=== PATIENT | female | born 1975 | race American Indian/Alaskan Native ===

== ENCOUNTER 2016-12-27 06:00 | Inpatient (IN) | payer MEDICAID ==
[2015-03-16 09:58] VITALS: BMI 34.7
--- NOTE | 2016-12-27 00:07 | CP.PCM.HP ---
History of Present Illness - History of Present Illness History of Present Illness: 41yo P0 with previous H/O myomectomy for fibroid uterus, returns here today for definitive treatment with Total/Partial Hysterectomy. Pt also has a large left ovarian cyst and would have ovarian cystectomy. The procedure as well as the risks and benefits, Alternatives were discussed. It was pointed out to the patient that a subtotal hysterectomy would be performed in the event of intense pelvic adhesions. Questions from Pt has been answered and a consent was obtained. Present on Admission - Present on Admission Any Indicators Present on Admission: No Past Patient History - Past Medical History & Family History Past Medical History?: Yes - Past Social History Smoking Status: Never Smoked - CARDIAC Hx Hypertension: Yes - PULMONARY Hx Respiratory Disorders: No - NEUROLOGICAL Hx Neurological Disorder: No - HEENT Hx HEENT Problems: No - RENAL Hx Chronic Kidney Disease: No - ENDOCRINE/METABOLIC Hx Endocrine Disorders: No - HEMATOLOGICAL/ONCOLOGICAL Hx Blood Disorders: Yes Hx Anemia: Yes - INTEGUMENTARY Hx Dermatological Problems: Yes Other/Comment: [place]. FOR FUNGAL INFECTION BILAT. TOENAILS - MUSCULOSKELETAL/RHEUMATOLOGICAL Hx Musculoskeletal Disorders: Yes Hx Fractures: Yes (left foot) - GASTROINTESTINAL Hx Gastrointestinal Disorders: No - GENITOURINARY/GYNECOLOGICAL Hx Genitourinary Disorders: Yes Other/Comment: DX: FIBROIDS - PSYCHIATRIC Hx Psychophysiologic Disorder: No - SURGICAL HISTORY Hx Surgeries: Yes Hx Open Reduction Internal Fixation: Yes (left foot) Other/Comment: myomectomy - ANESTHESIA Hx Anesthesia: Yes Hx Anesthesia Reactions: No Hx Malignant Hyperthermia: No Has any member of the family had a problem w/ anesthesia?: No Meds Home Medications: Home Medication List Medication Instructions Recorded Confirmed Type Ibuprofen [Motrin Tab] 600 mg PO Q6H PRN #30 tab 12/29/16 Rx oxyCODONE/Acetaminophen [Percocet 1 tab PO Q4 PRN #15 tab 12/29/16 Rx 5/325 mg Tab] Allergies/Adverse Reactions: Allergies Allergy/AdvReac Type Severity Reaction Status Date / Time Penicillins Allergy Unknown UNKNOWN Verified 12/25/16 08:21 Results - Labs Result Diagrams: 12/28/16 07:41 Assessment & Plan (1) Fibroid uterus Status: Acute (2) Menorrhagia Status: Acute (3) Adnexal mass Status: Acute - Assessment and Plan (Free Text) Plan: NPO IV Fluids Mefoxin 2gms iv 1 hour before incision Sequential compression device - Date & Time Date: 12/27/16 Time: 07:54 Decision To Admit - InPatient: Physician Admission Certification:: cesar farrell - . 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
[2016-12-27] MEDS ORDERED: Midazolam 2 MG/2 ML VIAL ONE (07:27)
[2016-12-27] MEDS ORDERED: Propofol 10 mg/ml Inj (20 ML) ONE (07:27)
[2016-12-27] MEDS ORDERED: Rocuronium 10 mg/ml (5 ml) ONE (07:29)
[2016-12-27] MEDS ORDERED: Phenylephrine 10 mg/ml Inj ONE (07:29)
[2016-12-27] MEDS ORDERED: Lactated Ringer's 1,000 ML IV ONE ×7 (07:49→16:00)
[2016-12-27] MEDS ORDERED: Clindamycin 300 MG in Sodium Chloride 0.9% 50 ML IVPB ONE (09:00)
[2016-12-27] MEDS ORDERED: Clindamycin 600mg/50ml NS 600 MG/50 ML BAG IVPB ONE (09:08)
--- NOTE | 2016-12-27 09:58 | CP.PCM.HP ---
History of Present Illness - History of Present Illness History of Present Illness: 41yo P0 with previous H/O myomectomy for fibroid uterus, returns here today for definitive treatment with Total/Partial Hysterectomy. Pt also has a large left ovarian cyst and would have ovarian cystectomy. The procedure as well as the risks and benefits, Alternatives were discussed. It was pointed out to the patient that a subtotal hysterectomy would be performed in the event of intense pelvic adhesions. Questions from Pt has been answered and a consent was obtained. Past Patient History - Past Medical History & Family History Past Medical History?: Yes - Past Social History Smoking Status: Never Smoked - CARDIAC Hx Hypertension: Yes - PULMONARY Hx Respiratory Disorders: No - NEUROLOGICAL Hx Neurological Disorder: No - HEENT Hx HEENT Problems: No - RENAL Hx Chronic Kidney Disease: No - ENDOCRINE/METABOLIC Hx Endocrine Disorders: No - HEMATOLOGICAL/ONCOLOGICAL Hx Blood Disorders: Yes Hx Anemia: Yes - INTEGUMENTARY Hx Dermatological Problems: Yes Other/Comment: [place]. FOR FUNGAL INFECTION BILAT. TOENAILS - MUSCULOSKELETAL/RHEUMATOLOGICAL Hx Musculoskeletal Disorders: Yes Hx Fractures: Yes (left foot) - GASTROINTESTINAL Hx Gastrointestinal Disorders: No - GENITOURINARY/GYNECOLOGICAL Hx Genitourinary Disorders: Yes Other/Comment: DX: FIBROIDS - PSYCHIATRIC Hx Psychophysiologic Disorder: No - SURGICAL HISTORY Hx Surgeries: Yes Hx Open Reduction Internal Fixation: Yes (left foot) Other/Comment: myomectomy - ANESTHESIA Hx Anesthesia: Yes Hx Anesthesia Reactions: No Hx Malignant Hyperthermia: No Has any member of the family had a problem w/ anesthesia?: No Meds Allergies/Adverse Reactions: Allergies Allergy/AdvReac Type Severity Reaction Status Date / Time Penicillins Allergy Unknown UNKNOWN Verified 12/25/16 08:21 Results - Vital Signs Recent Vital Signs: Last Vital Signs Temp 97.3 F L 12/27/16 06:17 Pulse 88 12/27/16 06:17 Resp 20 12/27/16 06:17 BP 131/89 12/27/16 06:17 Pulse Ox 97 12/27/16 06:17 - Labs Labs: Laboratory Results - last 24 hr 12/27/16 07:13 Blood Type O POSITIVE Antibody Screen Negative
[2016-12-27] MEDS ORDERED: Neostigmine Methylsulfate 3mg/3ml Syringe IV ONE (10:37)
[2016-12-27] MEDS ORDERED: Oxycodone/Acetaminophen 5/325 mg Tab PO PRN (12:00)
[2016-12-27] MEDS ORDERED: Morphine 4 MG/ML VIAL ONE (12:15)
[2016-12-27] MEDS ORDERED: Morphine Monoject Barrel PCA 1mg/ml IV PRN (12:27)
[2016-12-27] MEDS ORDERED: Lactated Ringer's 1,000 ML IV SCH (12:30)
[2016-12-27] MEDS: HYDROmorphone 0.5 mg/0.5 ml ISec IVP PRN ×4 (12:55→13:50)
[2016-12-27 13:18] LABS: BASO # 0.1 K/uL (0.0-0.2); BASO % 0.3 % (0.0-2.0); EOS % 0.1 % (0.0-4.0); HEMATOCRIT 31.9 % (34.0-47.0); LYMPH # 2.1 K/uL (1.0-4.3); LYMPH % 10.2 % (20.0-40.0); MEAN CELL VOLUME 75.1 fL (81.0-99.0); MEAN PLATELET VOLUME 8.5 fL (7.2-11.7); MONO # 0.6 K/uL (0.0-0.8); MONO % 3.2 % (0.0-10.0); RED CELL DISTRIBUTION WIDTH 18.5 % (11.5-14.5)
[2016-12-27 13:32] LABS: WHITE BLOOD COUNT 20.2 K/uL (4.8-10.8)
--- NOTE | 2016-12-27 14:58 | PCM.SURG1 ---
Surgeon's Initial Post Op Note - Surgeon's Notes Surgeon: Dr Farrell Line Servicer: Pebbles Castano( Resident ) Type of Anesthesia: General Endo Anesthesia Administered By: CARLOS Rai, Supervised by Dr Rai Pre-Operative Diagnosis: Fibroid Uterus with Menorrhagia,. Previous Myomectomies X 2 Operative Findings: Extensive omental, bowels and bladder adhesions to the body of the 14wk sized multinodular uterus. Bladder was attached to the lower 2/3rds of the anterior surface of the uterus. The left adnexa had a 5.4X4.0X3.5cm ovarian cyst which was removed whist release of adhesions were being performed with Metzenbaum scissors and pickup forcep, a process taking over 2 hours before a total hysterectomy could be performed. Right ovary was visualized but involved in pelvic adhesions.Both fallopian tubes were involved in pelvic adhesions and were not visualized seperately. IVF Intake- 3500mls. EBL- 1000mls. urine Output- 500mls Post-Operative Diagnosis: Extensive Pelvic adhesions due to previous myomectomies. Multinidular fibroid uterus. Left Ovarian Cyst Operation Performed: Release of Pelvic adhesions. Total Abdominal Hysterectomy. Left Ovarian Cystectomy Specimen/Specimens Removed: Uterus with Cervix Estimated Blood Loss: EBL {In ML}: 1,000 Blood Products Given: PRBC (1 unit) Post-Op Condition: Good Date of Surgery/Procedure: 12/27/16 Time of Surgery/Procedure: 12:00
[2016-12-27] MEDS: Clindamycin 600mg/50ml D5W 600 MG/50 ML VIAL IVPB SCH ×2 (15:00→23:09)
[2016-12-27 22:25] LABS: BASO # 0.1 K/uL (0.0-0.2); BASO % 0.4 % (0.0-2.0); HEMATOCRIT 30.2 % (34.0-47.0); LYMPH # 0.9 K/uL (1.0-4.3); LYMPH % 5.2 % (20.0-40.0); MEAN CELL VOLUME 74.3 fL (81.0-99.0); MEAN CORPUSCULAR HEMOGLOBIN 24.2 pg (27.0-31.0); MEAN CORPUSCULAR HGB CONC 32.5 g/dL (33.0-37.0); MEAN PLATELET VOLUME 8.1 fL (7.2-11.7); MONO # 1.1 K/uL (0.0-0.8); MONO % 6.4 % (0.0-10.0); PLATELET COUNT 214 K/uL (130-400); RED CELL DISTRIBUTION WIDTH 18.6 % (11.5-14.5); WHITE BLOOD COUNT 17.1 K/uL (4.8-10.8)
[2016-12-27 23:29] LABS: LARGE PLATELETS PRESENT; NEUTROPHIL 81 % (50-75); SMUDGE CELLS PRESENT; TOTAL CELLS COUNTED 100
[2016-12-28 07:51] LABS: BASO # 0.1 K/uL (0.0-0.2); BASO % 0.6 % (0.0-2.0); HEMATOCRIT 30.1 % (34.0-47.0); LYMPH # 1.5 K/uL (1.0-4.3); LYMPH % 10.8 % (20.0-40.0); MEAN CELL VOLUME 75.9 fL (81.0-99.0); MEAN CORPUSCULAR HEMOGLOBIN 24.6 pg (27.0-31.0); MEAN CORPUSCULAR HGB CONC 32.4 g/dL (33.0-37.0); MEAN PLATELET VOLUME 8.2 fL (7.2-11.7); MONO % 7.4 % (0.0-10.0); RED CELL DISTRIBUTION WIDTH 19.3 % (11.5-14.5); WHITE BLOOD COUNT 13.7 K/uL (4.8-10.8)
--- NOTE | 2016-12-28 08:23 | CP.PCM.PN ---
<Ирина Baugh - Last Filed: 12/28/16 12:18> Subjective - Date & Time of Evaluation Date of Evaluation: 12/28/16 Time of Evaluation: 07:45 - Subjective Subjective: Patient seen and examined at bedside. Per nursing no acute events overnight. Patient is OOB to chair. Pain scale 9/10 currently on MANAGER [employer] pump. Guerin out this am. Tolerating clears. Denies passing flatus or BM. Reports having occasional dizziness. Denies headaches, chest pain, palpitations, shortness of breath. Objective - Vital Signs/Intake and Output Vital Signs (last 24 hours): Temp Pulse Resp BP Pulse Ox 97 F L 90 20 111/79 99 12/27/16 21:17 12/27/16 21:17 12/27/16 21:17 12/27/16 21:17 12/27/16 21:17 Intake and Output: 12/28/16 12/28/16 06:59 18:59 Intake Total 400 Output Total 300 Balance 100 - Medications Medications: Current Medications Hydromorphone HCl (Dilaudid) 0.5 mg IVP Q5M PRN PRN Reason: Pain, severe (8-10) Last Admin: 12/27/16 13:50 Dose: 0.5 mg Lactated Ringer's (Lactated Ringer's) 1,000 mls @ 125 mls/hr IV .Q8H [facility]OHNNY Clindamycin Phosphate (Cleocin) 600 mg in 50 mls @ 102 mls/hr IVPB Q8H JOHNNY Last Admin: 12/27/16 23:09 Dose: 102 mls/hr Ibuprofen (Motrin Tab) 600 mg PO Q6H PRN PRN Reason: Pain, Mild (1-3) Morphine Sulfate/Sodium Chloride (Morphine Inspector Machined Parts Monoject Barrel) 30 mg IV Q4H PRN; Protocol PRN Reason: Pain, severe (8-10) Last Admin: 12/27/16 16:00 Dose: 0.5 mg Oxycodone/Acetaminophen (Percocet 5/325 Mg Tab) 1 tab PO Q4 PRN PRN Reason: Pain, moderate (4-7) Stop: 12/30/16 12:01 Oxycodone/Acetaminophen (Percocet 5/325 Mg Tab) 2 tab PO Q4H PRN PRN Reason: Pain, severe (8-10) Stop: 12/30/16 12:40 - Labs Labs: 12/28/16 07:41 - Constitutional Appears: Well, No Acute Distress - Head Exam Head Exam: ATRAUMATIC, NORMAL INSPECTION - Eye Exam Eye Exam: EOMI, Normal appearance - ENT Exam ENT Exam: Mucous Membranes Moist - Neck Exam Neck Exam: Full ROM - Respiratory Exam Respiratory Exam: Clear to Ausculation Bilateral, NORMAL BREATHING PATTERN. absent: Rales, Rhonchi, Wheezes - Cardiovascular Exam Cardiovascular Exam: REGULAR RHYTHM, +S1, +S2 - GI/Abdominal Exam GI & Abdominal Exam: Soft, Tenderness, Hypoactive Bowel Sounds Additional comments: Dressing c/d/i; abdominal binder in place, abdomen appropriately tender - Extremities Exam Extremities Exam: Normal Inspection. absent: Calf Tenderness - Neurological Exam Neurological Exam: Alert, Awake, Oriented x3 - Psychiatric Exam Psychiatric exam: Normal Affect, Normal Mood - Skin Skin Exam: Dry, Normal Color, Warm Assessment and Plan - Assessment and Plan (Free Text) Assessment: 41 year old female with history of uterine fibroids/menorrhagia, history of 2 prior myomectomies, s/p Release of Pelvic adhesions, Total Abdominal Hysterectomy, Left Ovarian Cystectomy POD#1 Plan: 1. Stable, afebrile 2. D/C MANAGER [employer] pump, start PO pain medication 3. Post op Hgb 10.2 -> 9.8 4. F/U am CBC 5. Advance diet as tolerated 6. Guerin out, f/u voiding trial 7. Encourage ambulation and hydration; Encourage ISS use 8. Continue routine post op care 9. Plan d/w attending <Ben Farrell O - Last Filed: 12/30/16 22:17> Objective - Vital Signs/Intake and Output Vital Signs (last 24 hours): Temp Pulse Resp BP Pulse Ox 98.9 F 83 18 112/62 97 12/29/16 09:23 12/29/16 09:23 12/29/16 09:23 12/29/16 09:23 12/29/16 09:23 - Labs Labs: 12/28/16 07:41 Assessment and Plan (1) Fibroid uterus Status: Acute (2) Menorrhagia Status: Acute (3) Adnexal mass Status: Acute Attending/Attestation - Attestation I have personally seen and examined this patient.: No I have fully participated in the care of the patient.: Yes I have reviewed all pertinent clinical information, including history, physical exam and plan: Yes Notes (Text): 12/30/16 22:16 Pt reviewed with the resident and agrees with the above.
[2016-12-28] MEDS: Clindamycin 600mg/50ml D5W 600 MG/50 ML VIAL IVPB SCH ×3 (09:03→22:16)
[2016-12-28] MEDS: Oxycodone/Acetaminophen 5/325 mg Tab PO PRN (12:26)
--- NOTE | 2016-12-28 18:59 | CP.PCM.PN ---
Subjective - Date & Time of Evaluation Date of Evaluation: 12/28/16 Objective - Vital Signs/Intake and Output Vital Signs (last 24 hours): Temp Pulse Resp BP Pulse Ox 99.2 F 95 H 20 129/77 95 12/28/16 16:00 12/28/16 16:00 12/28/16 16:00 12/28/16 16:00 12/28/16 16:00 Intake and Output: 12/28/16 12/28/16 06:59 18:59 Intake Total 400 675 Output Total 300 Balance 100 675 - Medications Medications: Current Medications Lactated Ringer's (Lactated Ringer's) 1,000 mls @ 125 mls/hr IV .Q8H JOHNNY Last Admin: 12/28/16 09:14 Dose: 125 mls/hr Clindamycin Phosphate (Cleocin) 600 mg in 50 mls @ 102 mls/hr IVPB Q8H JOHNNY Last Admin: 12/28/16 16:20 Dose: 102 mls/hr Ibuprofen (Motrin Tab) 600 mg PO Q6H PRN PRN Reason: Pain, Mild (1-3) Last Admin: 12/28/16 18:28 Dose: 600 mg Morphine Sulfate/Sodium Chloride (Morphine Derrick Helper Monoject Barrel) 30 mg IV Q4H PRN; Protocol PRN Reason: Pain, severe (8-10) Last Admin: 12/27/16 16:00 Dose: 0.5 mg Oxycodone/Acetaminophen (Percocet 5/325 Mg Tab) 1 tab PO Q4 PRN PRN Reason: Pain, moderate (4-7) Stop: 12/30/16 12:01 Oxycodone/Acetaminophen (Percocet 5/325 Mg Tab) 2 tab PO Q4H PRN PRN Reason: Pain, severe (8-10) Stop: 12/30/16 12:40 Last Admin: 12/28/16 12:26 Dose: 2 tab - Labs Labs: 12/28/16 07:41
[2016-12-29] MEDS: Clindamycin 600mg/50ml D5W 600 MG/50 ML VIAL IVPB SCH (06:04)
[2016-12-29] MEDS: Oxycodone/Acetaminophen 5/325 mg Tab PO PRN (06:07)
--- NOTE | 2016-12-29 09:08 | CP.PCM.PN ---
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 Per nursing no acute events overnight. Patient is doing well, pain is controlled. Patient is ambulating and tolerating diet. Urinating without difficulty. Passing flatus, denies BM. Denies headaches , dizziness, cp, palpitations, urinary symptoms. Objective - Vital Signs/Intake and Output Vital Signs (last 24 hours): Temp Pulse Resp BP Pulse Ox 97.5 F L 85 20 104/64 96 12/29/16 00:00 12/29/16 00:00 12/29/16 00:00 12/29/16 00:00 12/29/16 00:00 - Medications Medications: Current Medications Lactated Ringer's (Lactated Ringer's) 1,000 mls @ 125 mls/hr IV .Q8H [facility] Last Admin: 12/28/16 09:14 Dose: 125 mls/hr Clindamycin Phosphate (Cleocin) 600 mg in 50 mls @ 102 mls/hr IVPB Q8H JOHNNY Last Admin: 12/29/16 06:04 Dose: 102 mls/hr Ibuprofen (Motrin Tab) 600 mg PO Q6H PRN PRN Reason: Pain, Mild (1-3) Last Admin: 12/28/16 18:28 Dose: 600 mg Morphine Sulfate/Sodium Chloride (Morphine Director Stage Monoject Barrel) 30 mg IV Q4H PRN; Protocol PRN Reason: Pain, severe (8-10) Last Admin: 12/27/16 16:00 Dose: 0.5 mg Oxycodone/Acetaminophen (Percocet 5/325 Mg Tab) 1 tab PO Q4 PRN PRN Reason: Pain, moderate (4-7) Stop: 12/30/16 12:01 Oxycodone/Acetaminophen (Percocet 5/325 Mg Tab) 2 tab PO Q4H PRN PRN Reason: Pain, severe (8-10) Stop: 12/30/16 12:40 Last Admin: 12/29/16 06:07 Dose: 2 tab - Labs Labs: 12/28/16 07:41 - Constitutional Appears: Well, No Acute Distress - Head Exam Head Exam: ATRAUMATIC, NORMAL INSPECTION - Eye Exam Eye Exam: EOMI, Normal appearance Pupil Exam: NORMAL ACCOMODATION - ENT Exam ENT Exam: Mucous Membranes Moist - Respiratory Exam Respiratory Exam: Clear to Ausculation Bilateral, NORMAL BREATHING PATTERN. absent: Rhonchi, Wheezes - Cardiovascular Exam Cardiovascular Exam: REGULAR RHYTHM, +S1, +S2 - GI/Abdominal Exam GI & Abdominal Exam: Soft, Tenderness Additional comments: Incision c/d/i Abd binder in place - Extremities Exam Extremities Exam: Calf Tenderness, Normal Inspection - Back Exam Back Exam: NORMAL INSPECTION - Neurological Exam Neurological Exam: Alert, Awake, Oriented x3 - Psychiatric Exam Psychiatric exam: Normal Affect, Normal Mood - Skin Skin Exam: Dry, Normal Color, Warm Assessment and Plan - Assessment and Plan (Free Text) Assessment: 41 year old female with history of uterine fibroids/menorrhagia, history of 2 prior myomectomies, s/p Release of Pelvic adhesions, Total Abdominal Hysterectomy, Left Ovarian Cystectomy POD#2 Plan: 1. Stable, afebrile 2. Pain control - percocet and motrin prn 3. Encourage ambulation and hydration 4. Encourage ISS use 5. Continue routine post op care 6. Anticipate d/c home today - pelvic rest x 6 weeks, percocet and motrin prn pain, f/u with office within 10 days for post op check 7. Plan d/w attending Ирина Baugh DO PGY-1 <Ben Farrell O - Last Filed: 12/30/16 22:19> Objective - Vital Signs/Intake and Output Vital Signs (last 24 hours): Temp Pulse Resp BP Pulse Ox 98.9 F 83 18 112/62 97 12/29/16 09:23 12/29/16 09:23 12/29/16 09:23 12/29/16 09:23 12/29/16 09:23 - Labs Labs: 12/28/16 07:41 Assessment and Plan (1) Fibroid uterus Status: Acute (2) Menorrhagia Status: Acute (3) Adnexal mass Status: Acute Attending/Attestation - Attestation I have personally seen and examined this patient.: No I have fully participated in the care of the patient.: Yes I have reviewed all pertinent clinical information, including history, physical exam and plan: Yes
[2016-12-29 09:25] VITALS: BP 112/62; PULSE 83; RESP 18; TEMP 98.9; O2SAT 97
--- NOTE | 2016-12-29 14:00 | CP.PCM.DIS ---
<Ирина Baugh - Last Filed: 12/29/16 14:03> Provider - Provider Date of Admission: 12/27/16 06:00 Attending physician: Ben Farrell Primary care physician: Dr Farrell Time Spent in preparation of Discharge (in minutes): 33 Diagnosis - Discharge Diagnosis (1) Adnexal mass Status: Acute (2) Fibroid uterus Status: Acute (3) Menorrhagia Status: Acute (4) Chronic hypertension Status: Acute (5) Status post myomectomy Status: Acute Hospital Course - Lab Results Lab Results: Most Recent Lab Values WBC 13.7 K/uL (4.8-10.8) H 12/28/16 07:41 RBC 3.97 Mil/uL (3.80-5.20) 12/28/16 07:41 Hgb 9.8 g/dL (11.0-16.0) L 12/28/16 07:41 Hct 30.1 % (34.0-47.0) L 12/28/16 07:41 MCV 75.9 fL (81.0-99.0) L 12/28/16 07:41 MCH 24.6 pg (27.0-31.0) L 12/28/16 07:41 MCHC 32.4 g/dL (33.0-37.0) L 12/28/16 07:41 RDW 19.3 % (11.5-14.5) H 12/28/16 07:41 Plt Count 215 K/uL (130-400) 12/28/16 07:41 MPV 8.2 fL (7.2-11.7) 12/28/16 07:41 Neut % (Auto) 81.2 % (50.0-75.0) H 12/28/16 07:41 Lymph % (Auto) 10.8 % (20.0-40.0) L 12/28/16 07:41 [place] % (Auto) 7.4 % (0.0-10.0) 12/28/16 07:41 Eos % (Auto) 0.0 % (0.0-4.0) 12/28/16 07:41 Baso % (Auto) 0.6 % (0.0-2.0) 12/28/16 07:41 Neut # 11.1 K/uL (1.8-7.0) H 12/28/16 07:41 Lymph # 1.5 K/uL (1.0-4.3) 12/28/16 07:41 [place] # 1.0 K/uL (0.0-0.8) H 12/28/16 07:41 Eos # 0.0 K/uL (0.0-0.7) 12/28/16 07:41 Baso # 0.1 K/uL (0.0-0.2) 12/28/16 07:41 Neutrophils % (Manual) 81 % (50-75) H 12/27/16 22:22 Band Neutrophils % 8 % (0-2) H 12/27/16 22:22 Lymphocytes % (Manual) 5 % (20-40) L 12/27/16 22:22 Monocytes % (Manual) 6 % (0-10) 12/27/16 22:22 Differential Comment 12/27/16 13:08 Hypersegmented Polys Present 12/27/16 22:22 Smudge Cells Present 12/27/16 22:22 Toxic Granulation Present 12/27/16 22:22 Platelet Estimate Normal (NORMAL) 12/27/16 22:22 Large Platelets Present 12/27/16 22:22 Polychromasia Slight 12/27/16 22:22 Poikilocytosis (manual Slight 12/27/16 22:22 Anisocytosis (manual) Slight 12/27/16 22:22 Blood Type O POSITIVE 12/27/16 07:13 Antibody Screen Negative 12/27/16 07:13 - Hospital Course Hospital Course: Patient is a 41 year old female with history of chronic HTN, uterine fibroids and menorrhagia, s/p 2 previous myomectomies who presents for scheduled total abdominal hysterectomy. Patient underwent ELLE with release of pelvic adhesions secondary to previous myomectomies and L ovarian cystectomy on 12/27/16. Patient tolerated the procedure well, no complications noted. Patient was monitored closely post operatively. Patient did well, pain was controlled. Diet was advanced as tolerated. Urinating without difficulty. Post op hemoglobin was stable at 9.8. On POD#2, patient was passing flatus and urinating without difficulty. Patient was given prescriptions for Motrin and percocet prn pain. Patient instructed pelvic rest x 6 weeks and to follow up with Dr Farrell within 2 weeks. All questions and concerns were addressed. Patient was medically stable prior to discharge. Discharge Exam - Head Exam Head Exam: ATRAUMATIC, NORMAL INSPECTION - Eye Exam Eye Exam: EOMI, Normal appearance Pupil Exam: NORMAL ACCOMODATION, PERRL - ENT Exam ENT Exam: Mucous Membranes Moist - Neck Exam Neck exam: Full Rom - Respiratory Exam Respiratory Exam: Clear to PA & Lateral, NORMAL BREATHING PATTERN, UNREMARKABLE. absent: Rales, Rhonchi, Wheezes Additional comments: ISS at the bedside - Cardiovascular Exam Cardiovascular Exam: REGULAR RHYTHM, +S1, +S2 - GI/Abdominal Exam GI & Abdominal Exam: Normal Bowel Sounds, Soft, Tenderness. absent: Guarding, Rigid Additional comments: Incision c/d/i with steristrips - Extremities Exam Extremities exam: normal inspection - Back Exam Back exam: NORMAL INSPECTION - Neurological Exam Neurological exam: Alert, Oriented x3 - Psychiatric Exam Psychiatric exam: Normal Affect, Normal Mood - Skin Skin Exam: Dry, Normal Color, Warm Discharge Plan - Discharge Medications Prescriptions: Ibuprofen [Motrin Tab] 600 mg PO Q6H PRN #30 tab PRN Reason: Pain, Mild (1-3) oxyCODONE/Acetaminophen [Percocet 5/325 mg Tab] 1 tab PO Q4 PRN #15 tab PRN Reason: Pain, Moderate (4-7) - Follow Up Plan Condition: GOOD Disposition: HOME/ ROUTINE Instructions: Abdominal Hysterectomy (DC), Iron Rich Diet (DC), Wound Healing and Your Diet (DC), Care For Your Absorbable Stitches (DC) Additional Instructions: Pelvic x 6 weeks, percocet and motrin prn, f/u with office within 2 weeks <Ben Farrell - Last Filed: 12/30/16 22:21> Provider - Provider Date of Admission: 12/27/16 06:00 Attending physician: Ben Farrell Diagnosis - Discharge Diagnosis (1) Fibroid uterus Status: Acute (2) Menorrhagia Status: Acute (3) Adnexal mass Status: Acute Hospital Course - Lab Results Lab Results: Most Recent Lab Values WBC 13.7 K/uL (4.8-10.8) H 12/28/16 07:41 RBC 3.97 Mil/uL (3.80-5.20) 12/28/16 07:41 Hgb 9.8 g/dL (11.0-16.0) L 12/28/16 07:41 Hct 30.1 % (34.0-47.0) L 12/28/16 07:41 MCV 75.9 fL (81.0-99.0) L 12/28/16 07:41 MCH 24.6 pg (27.0-31.0) L 12/28/16 07:41 MCHC 32.4 g/dL (33.0-37.0) L 12/28/16 07:41 RDW 19.3 % (11.5-14.5) H 12/28/16 07:41 Plt Count 215 K/uL (130-400) 12/28/16 07:41 MPV 8.2 fL (7.2-11.7) 12/28/16 07:41 Neut % (Auto) 81.2 % (50.0-75.0) H 12/28/16 07:41 Lymph % (Auto) 10.8 % (20.0-40.0) L 12/28/16 07:41 [place] % (Auto) 7.4 % (0.0-10.0) 12/28/16 07:41 Eos % (Auto) 0.0 % (0.0-4.0) 12/28/16 07:41 Baso % (Auto) 0.6 % (0.0-2.0) 12/28/16 07:41 Neut # 11.1 K/uL (1.8-7.0) H 12/28/16 07:41 Lymph # 1.5 K/uL (1.0-4.3) 12/28/16 07:41 [place] # 1.0 K/uL (0.0-0.8) H 12/28/16 07:41 Eos # 0.0 K/uL (0.0-0.7) 12/28/16 07:41 Baso # 0.1 K/uL (0.0-0.2) 12/28/16 07:41 Neutrophils % (Manual) 81 % (50-75) H 12/27/16 22:22 Band Neutrophils % 8 % (0-2) H 12/27/16 22:22 Lymphocytes % (Manual) 5 % (20-40) L 12/27/16 22:22 Monocytes % (Manual) 6 % (0-10) 12/27/16 22:22 Differential Comment 12/27/16 13:08 Hypersegmented Polys Present 12/27/16 22:22 Smudge Cells Present 12/27/16 22:22 Toxic Granulation Present 12/27/16 22:22 Platelet Estimate Normal (NORMAL) 12/27/16 22:22 Large Platelets Present 12/27/16 22:22 Polychromasia Slight 12/27/16 22:22 Poikilocytosis (manual Slight 12/27/16 22:22 Anisocytosis (manual) Slight 12/27/16 22:22 Blood Type O POSITIVE 12/27/16 07:13 Antibody Screen Negative 12/27/16 07:13 Attending/Attestation - Attestation I have personally seen and examined this patient.: No I have fully participated in the care of the patient.: Yes I have reviewed all pertinent clinical information, including history, physical exam and plan: Yes
--- NOTE | 2016-12-29 23:00 | CP.PCM.DIS ---
Provider - Provider Date of Admission: 12/27/16 06:00 Attending physician: [facility] Course - Lab Results Lab Results: Most Recent Lab Values WBC 13.7 K/uL (4.8-10.8) H 12/28/16 07:41 RBC 3.97 Mil/uL (3.80-5.20) 12/28/16 07:41 Hgb 9.8 g/dL (11.0-16.0) L 12/28/16 07:41 Hct 30.1 % (34.0-47.0) L 12/28/16 07:41 MCV 75.9 fL (81.0-99.0) L 12/28/16 07:41 MCH 24.6 pg (27.0-31.0) L 12/28/16 07:41 MCHC 32.4 g/dL (33.0-37.0) L 12/28/16 07:41 RDW 19.3 % (11.5-14.5) H 12/28/16 07:41 Plt Count 215 K/uL (130-400) 12/28/16 07:41 MPV 8.2 fL (7.2-11.7) 12/28/16 07:41 Neut % (Auto) 81.2 % (50.0-75.0) H 12/28/16 07:41 Lymph % (Auto) 10.8 % (20.0-40.0) L 12/28/16 07:41 [place] % (Auto) 7.4 % (0.0-10.0) 12/28/16 07:41 Eos % (Auto) 0.0 % (0.0-4.0) 12/28/16 07:41 Baso % (Auto) 0.6 % (0.0-2.0) 12/28/16 07:41 Neut # 11.1 K/uL (1.8-7.0) H 12/28/16 07:41 Lymph # 1.5 K/uL (1.0-4.3) 12/28/16 07:41 [place] # 1.0 K/uL (0.0-0.8) H 12/28/16 07:41 Eos # 0.0 K/uL (0.0-0.7) 12/28/16 07:41 Baso # 0.1 K/uL (0.0-0.2) 12/28/16 07:41 Neutrophils % (Manual) 81 % (50-75) H 12/27/16 22:22 Band Neutrophils % 8 % (0-2) H 12/27/16 22:22 Lymphocytes % (Manual) 5 % (20-40) L 12/27/16 22:22 Monocytes % (Manual) 6 % (0-10) 12/27/16 22:22 Differential Comment 12/27/16 13:08 Hypersegmented Polys Present 12/27/16 22:22 Smudge Cells Present 12/27/16 22:22 Toxic Granulation Present 12/27/16 22:22 Platelet Estimate Normal (NORMAL) 12/27/16 22:22 Large Platelets Present 12/27/16 22:22 Polychromasia Slight 12/27/16 22:22 Poikilocytosis (manual Slight 12/27/16 22:22 Anisocytosis (manual) Slight 12/27/16 22:22 Blood Type O POSITIVE 12/27/16 07:13 Antibody Screen Negative 12/27/16 07:13 Discharge Exam - Head Exam Head Exam: ATRAUMATIC, NORMAL INSPECTION Discharge Plan - Discharge Medications Prescriptions: Ibuprofen [Motrin Tab] 600 mg PO Q6H PRN #30 tab PRN Reason: Pain, Mild (1-3) oxyCODONE/Acetaminophen [Percocet 5/325 mg Tab] 1 tab PO Q4 PRN #15 tab PRN Reason: Pain, Moderate (4-7) - Follow Up Plan Condition: GOOD Disposition: HOME/ ROUTINE Instructions: Abdominal Hysterectomy (DC), Iron Rich Diet (DC), Wound Healing and Your Diet (DC), Care For Your Absorbable Stitches (DC) Additional Instructions: Pelvic x 6 weeks, percocet and motrin prn, f/u with office within 2 weeks
--- NOTE | 2017-01-01 07:23 | OP ---
PREOPERATIVE DIAGNOSIS: He is a 41-year-old with fibroid uterus and menorrhagia and previous myomectomies x2. POSTOPERATIVE DIAGNOSES: 1. Extensive pelvic adhesions. 2. Fibroid uterus with menorrhagia. OPERATION PERFORMED: 1. Release of pelvic adhesions. 2. Total abdominal hysterectomy. 3. Left ovarian cystectomy performed on 12/27/2016. SURGEON: Ben Farrell MD BILLET HEADER: Sonido Weiner MD and Dr. Ирина Gutierrez, [facility] practice resident. Assistance to this procedure was needed for exposure of tissue and help in the conduct of the surgery. Both assistants remained with the surgery throughout it entirely. TYPE OF ANESTHESIA: General endotracheal. ANESTHESIA ADMINISTERED BY: Fredi GONZALEZ, supervised by Dr. Raul Rai and Dr. Matthew Heath. OPERATIVE FINDINGS: Extensive omental, bowel and bladder adhesions to the body of a 14-week size multinodular fibroid uterus. Anteriorly, the bladder was attached to the lower two-thirds of the anterior surface of the uterus and posteriorly, there were omental and bowel adhesions to multiple sites on the posterior wall of the uterus, making access to the posterior cul-de-sac difficult. On the left adnexa, had 5.4 x 4.5 x 3.0 ovarian cyst which were removed during detachment of the release of adhesions using Metzenbaum scissors. The right adnexa was also firmly attached to the right lateral wall of the uterus. The adhesions were released with Metzenbaum scissors and carefully from the body of the uterus a process which took about 2 hours which led to a significant amount of bleeding. The patient was hemotransfused 1 unit during the procedure to replace the lost blood. The right ovary was visualized, but was involved in dense pelvic adhesions. Both fallopian tubes were also involved in pelvic adhesions and were not visualized separately. IV FLUID INTAKE: 3500 mL. ESTIMATED BLOOD LOSS: 1000 mL URINE OUTPUT: 500 mL of clear urine. SPECIMEN TAKEN: Uterus with the cervix. DESCRIPTION OF PROCEDURE: After obtaining informed consent, the patient was sent to the OR with IV running and Guerin catheter in place. The patient was placed in a supine position on the OR table and after adequate general anesthesia the patient was prepped and draped in the usual sterile fashion. A Pfannenstiel skin incision was made incisional scar using a scalpel. This was sent through the subcutaneous tissues by means of Bovie device until the rectus fascia was identified. A transverse incision was made in the rectus fascia, and this was sent to both sides by means of Xavier scissors. The rectus fascia was from the underlying rectus muscle both superiorly and inferiorly by means of a blunt dissection and sharp dissection using Xavier scissors. The rectus muscle was in the midline to expose the peritoneum, which was carefully tented between 2 Jeanie clamps and carefully entered with Metzenbaum scissors. commencing from the superior most type of the exposed incision. Upon entering the peritoneum, the above findings were noted. Omental adhesions to the anterior abdominal wall was by means of using Jeanie clamps, incision of the tissue in between them and ligating them with #2-0 Vicryl. The anterior wall of the placenta was almost covered with a bladder. This was carefully dissected using a pickup forceps and Metzenbaum scissors and were carefully and pushed inferiorly with sponge stick and peanuts. Bowel adhesions to the posterior surface of the uterus was also performed by means of release of fibrinous adhesions around the bowels and carefully dissecting off the posterior surface. Adhesions of the adnexa to the body of the uterus was also carefully performed until all the adhesions were from the body of the uterus. These were pushed away from the uterus to enable a procedure of hysterectomy. Both round ligament on both sides were grasped with a LigaSure device, cauterized and transected. The tissues along the bladder reflection on the anterior surface of the uterus were carefully dissected and then pushed inferiorly using sponge sticks to bring the bladder down. The attachments of the adnexal to both cornua of the uterus were grasped with the LigaSure device, cauterized on several points and then transected. Skeletonization of the uterine vessels on both sides were performed with Metzenbaum scissors to move tissues down to avoid injury to the uterus. The right uterine vessels were clamped using Gifty clamps and were transected and suture ligated using Vicryl #0. The same procedure was done on the left side to clamp and ligate the uterine vessels. At this point, using Gifty clamps, the right and left paracervical tissues were clamped very close to the cervix inside and ligated using Vicryl #0. These tissues were clamped along the cervix to the vagina, both were encountered on both sides. The cervix was then amputated from the vagina using Win scissors. The corners of the uterus was then given for histopathology. The corners of the vagina on both sides were secured with Vicryl #0 sutures. The rest of the vagina vault was closed using a [id number] interrupted sutures and hematosis was assured. Once this procedure has been completed, all bleeding surfaces were encountered and hematosis secured using Vicryl #4-0 for hemostasis. FloSeal was used for the areas where bleeding continue and after reducing bleeding with pressure. Surgicel was also applied to both adnexa to help in hemostasis. Once hemostasis was assured, attention was then transferred to the anterior abdominal wall which was closed in layers with 2-0 Vicryl for the peritoneum and the rectus muscle. The rectus fascia was reapproximated using Vicryl #0. His subcutaneous tissues were brought together using #2-0 plain catgut. The skin was closed in the subcuticular fashion using #4-0 Vicryl. All counts of instruments were correct x3. The patient was sent to the recovery room awake and in stable condition. Ben Farrell MD
== END 2016-12-29 18:25 | disposition home or self-care (01) | DRG 359 ==
LOC: C.9S 06:00 → C.4M 13:47
PROVIDERS: ADMIT Obstetrics & Gynecology; ATTEND Obstetrics & Gynecology
PROC: 0UTC0ZZ Resection of Cervix, Open Approach (ICD-10-PCS; 2016-12-27)
PROC: 0UB10ZZ Excision of Left Ovary, Open Approach (ICD-10-PCS; 2016-12-27)
PROC: 0UN40ZZ Release Uterine Supporting Structure, Open Approach (ICD-10-PCS; 2016-12-27)
PROC: 0UT90ZZ Resection of Uterus, Open Approach (ICD-10-PCS; principal; 2016-12-27 08:15)
DX: D25.9 Leiomyoma of uterus, unspecified (principal); N73.6 Female pelvic peritoneal adhesions (postinfective); N83.9 Noninflammatory disorder of ovary, fallopian tube and broad ligament, unspecified; N92.0 Excessive and frequent menstruation with regular cycle

== ENCOUNTER 2018-04-24 18:27 | Emergency (ER) | payer MEDICAID ==
[2018-04-24 18:48] VITALS: BMI 34.2
[2018-04-24 18:53] VITALS: O2SAT 100
[2018-04-24 19:47] VITALS: RESP 18
[2018-04-24 20:00] LABS: BASO # 0.1 K/uL (0.0-0.2); EOS # 0.2 K/uL (0.0-0.7); EOS % 2.8 % (0.0-4.0); LYMPH # 2.1 K/uL (1.0-4.3); LYMPH % 24.8 % (20.0-40.0); MEAN CORPUSCULAR HEMOGLOBIN 26.6 pg (27.0-31.0); MEAN PLATELET VOLUME 9.1 fL (7.2-11.7); MONO # 0.6 K/uL (0.0-0.8); MONO % 6.7 % (0.0-10.0); NEUT # 5.5 K/uL (1.8-7.0); NEUT % 64.7 % (50.0-75.0); RBC 4.9 Mil/uL (3.80-5.20); RED CELL DISTRIBUTION WIDTH 15.7 % (11.5-14.5); WHITE BLOOD COUNT 8.5 K/uL (4.8-10.8)
[2018-04-24 20:05] LABS: PROTHROMBIN TIME 11.4 SECONDS (9.7-12.2)
[2018-04-24 20:07] LABS: MEAN CELL VOLUME 83.2 fL (81.0-99.0)
[2018-04-24 20:10] LABS: ALB/GLOB RATIO 1.5 (1.0-2.1); ALBUMIN 4.8 g/dL (3.5-5.0); ALT/SGPT 25 U/L (9-52); AST/SGOT 22 U/L (14-36); BLOOD UREA NITROGEN 14 mg/dL (7-17); CALCIUM 9.7 mg/dl (8.6-10.4); GFR NON-AFRICAN AMERICAN > 60
[2018-04-24 20:16] LABS: BARBITURATES, UR NEGATIVE (NEGATIVE); BENZODIAZEPINES, UR NEGATIVE (NEGATIVE); OPIATES, UR NEGATIVE (NEGATIVE); PHENCYCLIDINE, UR NEGATIVE (NEGATIVE)
[2018-04-24 20:18] LABS: CREATININE, RANDOM URINE 32.4 mg/dL
--- NOTE | 2018-04-24 20:45 | OBHP ---
Datetime: 04/24/2018 20:28 IP Admit Plan Other: DC to the ER for further eval and psych consult. Admit Comment, IP Provider: This is a 43 y/o female presents with c/o " not feeling baby move from t maria a to time" and wanting to check out the baby. pt has no c/o VB, LOF or abdominal pain. Pt was send from the Er with elevated BP. Pt gives a h/o HTN and stopped taking medication when she found out she was . PMH: HTN POBH: fibroid uterus Social H: Denies h/o drug use. Exam: Bed side US - No noted. BP: Elevated Labs: CBC/CMP- Nomal Urine drug screen- Negative Bed side TA and TV US- Shows absent uterus. A/P: 43 y/o female with Phantom . Upon review of records reveiled that the pt underwent hysterectomy on 2016. Pt doesn't make eye contact IV Labetolol 20 mg given for elevated BP Will DC pt to the Er for further management of BP and Psychiatric consult. Abdomen - PN: Normal Comments, ACOG Physical Exam: Normal IP Chief Complaint: evaluation; Other
--- NOTE | 2018-04-24 22:01 | C.PDOC ---
History Of Present Illness 43 year old female who LWBS, was initially referred by OBGYN for evaluation of HTn and anxiety. Patient believes herself to be although she had a hysterectomy in 2017. OB examination showed negative test and negative pelvic US, however, patient still believes she is . Patient was cleared by OB and referred to ER bu patient left with parents prior to ER evaluation. Chief Complaint (Nursing): Medical Clearance Past Medical History Reviewed: Historical Data, Nursing Documentation, Vital Signs Vital Signs: Last Vital Signs Temp 98.3 F 04/24/18 18:48 Pulse 91 H 04/24/18 18:48 Resp 18 04/24/18 19:47 BP 175/113 H 04/24/18 18:48 Pulse Ox 100 04/24/18 18:48 - Medical History PMH: Anemia, Fractures (left foot), HTN Denies: Chronic Kidney Disease Surgical History: Endoscopy - [facility] Procedures EXCISION OF LEFT OVARY, OPEN APPROACH (12/27/16) EXCISION OF UTERUS, OPEN APPROACH (03/18/15) RELEASE UTERINE SUPPORTING STRUCTURE, OPEN APPROACH (12/27/16) RELEASE UTERUS, OPEN APPROACH (03/18/15) RESECTION OF CERVIX, OPEN APPROACH (12/27/16) RESECTION OF UTERUS, OPEN APPROACH (12/27/16) Family History: States: Unknown Family Hx - Social History Hx Alcohol Use: No Hx Substance Use: No - Immunization History Hx Tetanus Toxoid Vaccination: No Hx Influenza Vaccination: No Hx Pneumococcal Vaccination: No ED Course And Treatment - Laboratory Results Result Diagrams: 04/24/18 19:50 04/24/18 19:50 Lab Results: PT 11.4 SECONDS (9.7-12.2) 04/24/18 19:50 INR 1.0 04/24/18 19:50 Total Bilirubin 0.4 mg/dL (0.2-1.3) 04/24/18 19:50 AST 22 U/L (14-36) 04/24/18 19:50 ALT 25 U/L (9-52) 04/24/18 19:50 Alkaline Phosphatase 79 U/L (38-126) 04/24/18 19:50 Total Protein 8.0 g/dL (6.3-8.3) 04/24/18 19:50 Albumin 4.8 g/dL (3.5-5.0) 04/24/18 19:50 Globulin 3.3 gm/dL (2.2-3.9) 04/24/18 19:50 Albumin/Globulin Ratio 1.5 (1.0-2.1) 04/24/18 19:50 Ur Random Creatinine 32.4 mg/dL 04/24/18 19:50 U Random Total Protein 13.0 mg/dL (0.0-12.0) H 04/24/18 19:50 Beta HCG, Quant < 2.39 mIU/ML 04/24/18 19:50 O2 Sat by Pulse Oximetry: 100 Medical Decision Making Medical Decision Making: hypertension off meds + proteinuria LWOB: restart HTN meds as instructed by OB or in next Clinic visit NOT hand-off from OB appreciated prior to pt's eval in ED u-preg neg Hysterectomy 2017 confirmed by neg US tonight psych: pt convinced she's despite explanation by OB NOT seen by this MD to further eval/explain LWOB Disposition Doctor Will See Patient In The: Office Counseled Patient/Family Regarding: Studies Performed, Diagnosis - Disposition Disposition: LEFT W/O BEING SEEN - ER ONLY Disposition Time: 22:01 Condition: UNKNOWN Forms: [facility] (Lao) - Clinical Impression Clinical Impression: Medical assessment, Hypertension - Scribe Statement The provider has reviewed the documentation as recorded by the Scribe Jose Fine All medical record entries made by the Scribe were at my direction and persona lly dictated by me. I have reviewed the chart and agree that the record accurately reflects my personal performance of the history, physical exam, medical decision making, and the department course for this patient. I have also personally directed, reviewed, and agree with the discharge instructions and disposition.
[2018-04-25 03:07] VITALS: BP 148/96; PULSE 88; TEMP 98.8
--- NOTE | 2018-04-25 09:46 | US ---
Date of service: 04/24/2018 HISTORY: with unknown dates COMPARISON: None available. TECHNIQUE: Transvaginal pelvic ultrasound was performed. FINDINGS: UTERUS: Surgically absent. RIGHT OVARY: Measures 4.3 x 3.5 x 3.7 cm. No solid mass. Normal flow. There is a 3.4 x 2.0 x 2.8 cm complicated/hemorrhagic cyst. LEFT OVARY: Measures 6.1 x 3.0 x 5.5 cm. No solid mass. Normal flow. There is a 3.6 x 2.1 x 3.1 cm septated cyst and 2.2 x 1.4 x 2.1 cm complicated/hemorrhagic cyst. FREE FLUID: No significant free fluid noted. OTHER FINDINGS: None. IMPRESSION: Status post hysterectomy. 3.4 x 2.0 x 2.8 cm complicated/hemorrhagic cyst in the right ovary. Follow-up ultrasound in 3-6 month interval is recommended to assess stability/resolution. 2.2 x 1.4 x 2.1 cm complicated/hemorrhagic cyst in the left ovary. Follow-up ultrasound in 3-6 month interval is recommended to assess stability/resolution. A preliminary report was provided by [facility].
== END 2018-04-24 21:40 | disposition left against medical advice (07) ==
LOC: C.ER 18:27 → C.EROB 18:27 → C.ER 21:40
DX: I10 Essential (primary) hypertension (principal)